=== PATIENT | female | born 1960 | race Caucasian/White ===

== ENCOUNTER 2019-10-23 10:30 | Outpatient (CLI) | payer OTHER | END 2019-10-23 11:00 | disposition home or self-care (01) | LOC: D.MAMMO 10:30 | PROVIDERS: ATTEND Nurse Practitioner Family | DX: Z00.00 Encounter for general adult medical examination without abnormal findings (principal) ==

== ENCOUNTER 2019-12-06 10:00 | Outpatient (CLI) | payer OTHER | END 2019-12-06 11:00 | disposition home or self-care (01) | LOC: D.MAMMO 10:00 | PROVIDERS: ATTEND Nurse Practitioner Family | DX: R92.8 Other abnormal and inconclusive findings on diagnostic imaging of breast (principal) ==